=== PATIENT | male | born 1945 | race Caucasian/White ===

== ENCOUNTER 2019-10-14 19:40 | Inpatient (IN) | payer OTHER ==
[~2019-10-14] VITALS: Ht 175.2 cm; Wt 72.8 kg
[2019-10-14 19:41] VITALS: BP 122/67
[2019-10-14 21:06] LABS: HEMOGLOBIN 12.8 g/dl (14.0-18.0); MEAN CELL VOLUME 90.5 fl (80.0-94.0); MEAN CORPUSCULAR HGB 31.3 pg (27.0-31.0); MEAN CORPUSCULAR HGB CONC 34.6 g/dl (33.0-37.0); MEAN PLATELET VOLUME 10.8 fl (9.6-12.3); PLATELET COUNT AUTOMATED 141 10*3/uL (130-400); RED BLOOD COUNT 4.09 10*6/uL (4.50-5.90); RED CELL DISTRI WIDTH 13.2 % (0-14.5); WHITE BLOOD COUNT 27.4 10*3/uL (4.8-10.8)
[2019-10-14 21:21] LABS: ALKALINE PHOSPHATASE 108 U/L (45-117); BUN 12 mg/dl (7-24); CHLORIDE 103 mmol/L (98-107); CREATININE 1.12 mg/dL (0.70-1.30); LIPASE 25 U/L (73-393); POTASSIUM 3.5 mmol/L (3.5-5.1); SGOT/AST 13 IU/L (3-35); SGPT/ALT 18 U/L (12-78); SODIUM 134 mmol/L (136-145); TOTAL PROTEIN 6.5 gm/dL (6.4-8.2)
[2019-10-14 21:29] LABS: TOTAL CELLS COUNTED 100 #CELLS
[2019-10-14 21:30] LABS: PLATELET SUFFICIENCY NORMAL (NORMAL)
[2019-10-14 22:28] LABS: BILIRUBIN NEGATIVE (NEGATIVE); BLOOD 3+ (NEGATIVE); CLARITY CLOUDY (CLEAR); COLOR YELLOW (YELLOW); GLUCOSE NEGATIVE (NEGATIVE); KETONE TRACE (NEGATIVE); LEUKO ESTERASE 3+ (NEGATIVE); NITRITE POSITIVE (NEGATIVE); UROBILINOGEN 0.2 E.U./dl (0.2-1.0)
[2019-10-14 23:18] LABS: BACTERIA 4+; RBC 21-30 rbc/hpf (0-2); WBC 31-40 wbc/hpf (0-5)
[2019-10-15] MEDS ORDERED: AMLODIPINE BES2.5 MG PO (00:13)
[2019-10-15] MEDS ORDERED: PANTOPRAZOLE SO40 MG PO (00:14)
[2019-10-15] MEDS ORDERED: CARVEDILOL3.125 MG PO (00:14)
[2019-10-15] MEDS ORDERED: FINASTERIDE5 M1 PO (00:14)
[2019-10-15 00:15] VITALS: BP 125/55
[2019-10-15] MEDS ORDERED: MESALAMINE4 GM/60 ML R (00:15)
--- NOTE | 2019-10-15 00:15 | NUR ---
Time: 14 A 74 year old MALE admitted to 4E under services of YENIFER KLEIN DO. Pt. arrived via stretcher from ER. Chief complaint: ABD PAIN. JERRICA WETZEL
[2019-10-15] MEDS ORDERED: FISH OIL 1,0001 EAC4 PO (00:16)
[2019-10-15] MEDS ORDERED: SAW PALMETTO500 MG PO (00:16)
[2019-10-15] MEDS ORDERED: CALCIUM 600 +1 EAC5 PO (00:18)
--- NOTE | 2019-10-15 00:18 | NUR ---
MED REC UPDATED PER LIST PROVIDED BY PATIENT
[2019-10-15] MEDS ORDERED: METAMUCIL660 GM PO (00:20)
--- NOTE | 2019-10-15 00:20 | NUR ---
MED REC COMPLETED WITH LIST FROM HOME
[2019-10-15 06:26] LABS: HEMATOCRIT 37.5 % (42.0-52.0); MEAN CELL VOLUME 89.9 fl (80.0-94.0); MEAN CORPUSCULAR HGB 31.2 pg (27.0-31.0); MEAN CORPUSCULAR HGB CONC 34.7 g/dl (33.0-37.0); MEAN PLATELET VOLUME 11.4 fl (9.6-12.3); PLATELET COUNT AUTOMATED 143 10*3/uL (130-400); RED BLOOD COUNT 4.17 10*6/uL (4.50-5.90); RED CELL DISTRI WIDTH 13.5 % (0-14.5); WHITE BLOOD COUNT 27.8 10*3/uL (4.8-10.8)
[2019-10-15 06:41] LABS: ALBUMIN 2.9 gm/dl (3.1-4.5); BUN 13 mg/dl (7-24); CHLORIDE 103 mmol/L (98-107); HDL CHOLESTEROL 55 mg/dl (40-60); POTASSIUM 3.8 mmol/L (3.5-5.1); SGOT/AST 11 IU/L (3-35); SODIUM 135 mmol/L (136-145); TOTAL PROTEIN 6.6 gm/dL (6.4-8.2)
[2019-10-15 06:50] LABS: ALKALINE PHOSPHATASE 105 U/L (45-117); CHOLESTEROL 110 mg/dL (<200); LDL CHOLESTEROL 47 mg/dL (9-159); PHOSPHOROUS 2.7 mg/dL (2.5-4.9); SGPT/ALT 17 U/L (12-78); THYROID STIM HORMONE (HS) 0.951 uIU/ml (0.358-4.75); TRIGLYCERIDES 42 mg/dl (<150); VLDL CHOLESTEROL 8 mg/dL (6-40)
[2019-10-15 07:16] LABS: INTERNATIONAL NORM RATIO 1.1 (2.0-3.5)
[2019-10-15 07:22] LABS: ATYPICAL LYMPHS 1 % (0-0); PLATELET SUFFICIENCY NORMAL (NORMAL); TOTAL CELLS COUNTED 100 #CELLS
--- NOTE | 2019-10-15 07:54 | NUR ---
NOTIFIED THAT THE MED REC WAS UPDATED AND HOME MEDS NEED REVIEWED/RESTARTED. SAID OK.
[2019-10-15 08:00] VITALS: BP 108/54
--- NOTE | 2019-10-15 08:32 | NUR ---
PHYSICAL THERAPY Screen received pt just admitted limite information on chart, please consult Physical Therapy if pt has a decline in functional status from baseline thank you Georgette Garza PT
--- NOTE | 2019-10-15 08:45 | NUR ---
OFF FLOOR FOR ULTRASOUND.
--- NOTE | 2019-10-15 09:00 | NUR ---
Fence Installer Foreman in to talk to patient. Patient states lives at home with . There are few steps in the home. Physician: damion [facility]ve Pharmacy: [facility] Home health services: none Patient's level of ADLs: INDEPENDENT Patient has working utilities: all working DME: none Follow-up physician's appointment after d/c: will be made by hospitalist nurse director upon discharge Does patient want to access PORTAL?: no Discharge plan discussed with patient, present, patient stated he lives at home with , he is independent in adls and ambulation, he doesn't drive but his does, he states he will return home when medically stable and denies any home needs, agrees that he will return home and denies any home needs, case management will follow. RONDA GONZALES
--- NOTE | 2019-10-15 09:13 | NUR ---
BACK TO ROOM FOLLOWING ULTRASOUND
[2019-10-15 12:00] VITALS: BP 124/65
--- NOTE | 2019-10-15 15:26 | NUR ---
CALLED TO ROOM FOR ABD PAIN COMPLAINTS. DULCOLAX AND TYLENOL GIVEN. PT STATES LAST BM WAS APROX TUESDAY WHICH IS UNUSUAL FOR HIM. WILL MONITOR.
[2019-10-15 16:12] VITALS: BP 125/70
[2019-10-15 20:00] VITALS: BP 90/70
--- NOTE | 2019-10-15 20:30 | NUR ---
PT RESTING IN BED. RESP-EASY AND REGULAR. NO C/O AT THIS TIME. CALL LIGHT IN REACH.
[2019-10-16] VITALS: BP 112/63
--- NOTE | 2019-10-16 00:05 | NUR ---
RESTING IN BED; BED ALARM ON.
--- NOTE | 2019-10-16 06:00 | NUR ---
RESTING IN BED WITH EYES CLOSED. RESPIRATIONS UNLABORED. CALL LIGHT WITHIN REACH; BED IN LOW LOCKED POSITION.
[2019-10-16 08:00] VITALS: BP 116/57
[2019-10-16 08:09] LABS: BASO # 0.1 10*3/uL (0.0-0.1); BASO % 0.3 % (0.0-1.0); EOS % 0.2 % (1.0-4.0); HEMATOCRIT 38.2 % (42.0-52.0); HEMOGLOBIN 13.1 g/dl (14.0-18.0); LYMPH # 1.8 10*3/uL (1.3-4.4); LYMPH % 9.2 % (27.0-41.0); MEAN CORPUSCULAR HGB 31.2 pg (27.0-31.0); MEAN CORPUSCULAR HGB CONC 34.3 g/dl (33.0-37.0); MEAN PLATELET VOLUME 11.1 fl (9.6-12.3); MONO # 1.3 10*3/uL (0.1-1.0); MONO % 6.7 % (3.0-9.0); NEUT # 16.1 10*3/uL (2.3-7.9); NEUT % 82.8 % (47.0-73.0); PLATELET COUNT AUTOMATED 140 10*3/uL (130-400); RED CELL DISTRI WIDTH 13.6 % (0-14.5); WHITE BLOOD COUNT 19.4 10*3/uL (4.8-10.8)
--- NOTE | 2019-10-16 08:15 | NUR ---
PT RESTING IN BED. RESP-EASY AND REGULAR. NO C/O AT THIS TIME. CALL LIGHT IN REACH. SEE SHIFT ASSESSMENT.
--- NOTE | 2019-10-16 09:00 | NUR ---
case management visits with patient, present, patient stated he would be returning home when medically stable and denies any home needs, was in agreement, case management will follow
[2019-10-16 12:00] VITALS: BP 133/63
--- NOTE | 2019-10-16 12:00 | NUR ---
PT RESTING IN BED. RESP-EASY ANDREGULAR. CALL LIGHT IN REACH.
--- NOTE | 2019-10-16 14:00 | NUR ---
RESTING IN BED. NO C/O AT THIS TIME. CALL LIGHT IN REACH.
[2019-10-16 16:00] VITALS: BP 153/84
--- NOTE | 2019-10-16 16:15 | NUR ---
Patient resting quietly with no c/o discomfort. Respirations easy and regular. Vital signs stable. No overt distress. NORMAN HERRERA
[2019-10-16 20:00] VITALS: BP 123/65
[2019-10-17] VITALS: BP 110/81
--- NOTE | 2019-10-17 04:28 | NUR ---
PT ASLEEP IN BED. RESPIRATIONS EASY. NO S/S OF DISTRESS NOTED. WILL MONITOR. CALL LIGHT IN REACH.
[2019-10-17 06:29] LABS: BASO % 0.3 % (0.0-1.0); EOS # 0.1 10*3/uL (0.0-0.4); EOS % 0.9 % (1.0-4.0); HEMATOCRIT 38.1 % (42.0-52.0); HEMOGLOBIN 12.9 g/dl (14.0-18.0); LYMPH # 1.8 10*3/uL (1.3-4.4); LYMPH % 17.9 % (27.0-41.0); MEAN CELL VOLUME 90.5 fl (80.0-94.0); MEAN CORPUSCULAR HGB 30.6 pg (27.0-31.0); MEAN CORPUSCULAR HGB CONC 33.9 g/dl (33.0-37.0); MEAN PLATELET VOLUME 11.6 fl (9.6-12.3); MONO # 0.9 10*3/uL (0.1-1.0); MONO % 8.4 % (3.0-9.0); NEUT # 7.4 10*3/uL (2.3-7.9); NEUT % 72.2 % (47.0-73.0); PLATELET COUNT AUTOMATED 144 10*3/uL (130-400); RED BLOOD COUNT 4.21 10*6/uL (4.50-5.90); RED CELL DISTRI WIDTH 13.8 % (0-14.5); WHITE BLOOD COUNT 10.2 10*3/uL (4.8-10.8)
--- NOTE | 2019-10-17 06:42 | NUR ---
NOTIFIED OF POSITIVE ORTHOS, BUT PT ASYMPTOMATIC. NO NEW ORDERS RECEIVED.
[2019-10-17 08:00] VITALS: BP 137/73
[2019-10-17] MEDS ORDERED: VITAMIN D32000 UNI1 PO (08:35)
[2019-10-17] MEDS ORDERED: CEFUROXIME AXE500 MG PO (08:35)
--- NOTE | 2019-10-17 08:50 | NUR ---
PT SITTING UP IN BED. RESP-EASY AND REGULAR. NO C/O AT THIS TIME. CALL LIGHT IN REACH. SEE SHIFT ASSESSMENT.
--- NOTE | 2019-10-17 09:00 | NUR ---
case management visits with patient and , he states he will return home when medically stable and denies any home needs
--- NOTE | 2019-10-17 09:46 | NUR ---
Discharge instructions reviewed with patient/family. Patient receptive and verbalizes understanding. Follow-up care arranged. Written instructions given to patient/family. HEPLOCK REMOVED 2X2 APPLIED. GEO ESCOBAR
--- NOTE | 2019-10-17 10:15 | NUR ---
PT ESCORTED OFF THE FLOOR FOR DISCHARGE VIA WHEELCHAIR.
== END 2019-10-17 10:00 | disposition home or self-care (01) | DRG 689 ==
LOC: ED 19:40 → 4E 23:53 → EDHOLD 23:53 → 4E 10-15 00:11
PROVIDERS: Emergency Medicine; Student in an Organized Health Care Education/Training Program; ADMIT Emergency Medicine
DX: N30.00 Acute cystitis without hematuria (principal); G93.41 Metabolic encephalopathy; E87.1 Hypo-osmolality and hyponatremia; K51.919 Ulcerative colitis, unspecified with unspecified complications; E44.0 Moderate protein-calorie malnutrition; R73.9 Hyperglycemia, unspecified; E80.6 Other disorders of bilirubin metabolism; K21.9 Gastro-esophageal reflux disease without esophagitis; N40.0 Benign prostatic hyperplasia without lower urinary tract symptoms; I10 Essential (primary) hypertension; D64.9 Anemia, unspecified; R73.03 Prediabetes; E55.9 Vitamin D deficiency, unspecified; Z88.8 Allergy status to other drugs, medicaments and biological substances; Z68.23 Body mass index [BMI] 23.0-23.9, adult; Z95.0 Presence of cardiac pacemaker; Z79.899 Other long term (current) drug therapy

== ENCOUNTER 2020-04-05 04:26 | Observation (INO) | payer OTHER ==
[~2020-04-05] VITALS: Ht 175.2 cm; Wt 72.3 kg
[~2020-04-05 04:26] MED LIST: AMLODIPINE BES2.5 MG PO; CALCIUM 600 +1 EAC5 PO; CARVEDILOL3.125 MG PO; CEFUROXIME AXE500 MG PO; FINASTERIDE5 M1 PO; FISH OIL 1,0001 EAC4 PO; MESALAMINE4 GM/60 ML R; METAMUCIL660 GM PO; PANTOPRAZOLE SO40 MG PO; SAW PALMETTO500 MG PO; VITAMIN D32000 UNI1 PO
[2020-04-05 04:45] LABS: BASO # 0.1 10*3/uL (0.0-0.1); EOS # 0.2 10*3/uL (0.0-0.4); EOS % 3.2 % (1.0-4.0); HEMATOCRIT 40.4 % (42.0-52.0); LYMPH # 2.4 10*3/uL (1.3-4.4); LYMPH % 34.2 % (27.0-41.0); MEAN CORPUSCULAR HGB 29.6 pg (27.0-31.0); MEAN CORPUSCULAR HGB CONC 33.7 g/dl (33.0-37.0); MEAN PLATELET VOLUME 10.7 fl (9.6-12.3); MONO # 0.7 10*3/uL (0.1-1.0); MONO % 9.6 % (3.0-9.0); NEUT # 3.6 10*3/uL (2.3-7.9); NEUT % 51.9 % (47.0-73.0); PLATELET COUNT AUTOMATED 171 10*3/uL (130-400); RED BLOOD COUNT 4.59 10*6/uL (4.50-5.90); RED CELL DISTRI WIDTH 14.3 % (0-14.5)
[2020-04-05 04:58] LABS: ACT PARTIAL THROMBO TIME 25.9 SECONDS (20.0-32.1); INTERNATIONAL NORM RATIO 1.1 (2.0-3.5)
[2020-04-05 05:03] LABS: ALBUMIN 3.5 gm/dl (3.1-4.5); ALKALINE PHOSPHATASE 114 U/L (45-117); BUN 13 mg/dl (7-24); CHLORIDE 109 mmol/L (98-107); CREATININE 0.91 mg/dL (0.70-1.30); POTASSIUM 3.6 mmol/L (3.5-5.1); SGOT/AST 16 IU/L (3-35); SGPT/ALT 21 U/L (12-78); SODIUM 140 mmol/L (136-145); TOTAL PROTEIN 7.5 gm/dL (6.4-8.2)
[2020-04-05 05:07] LABS: TROPONIN I < 0.015 ng/ml (<0.045)
[2020-04-05 08:02] VITALS: BP 153/73
[2020-04-05 13:05] VITALS: BP 142/90
[2020-04-05 16:00] VITALS: BP 151/90
[2020-04-05 20:00] VITALS: BP 119/62
[2020-04-06] VITALS: BP 127/72
[2020-04-06 06:44] LABS: BUN 18 mg/dl (7-24); CHLORIDE 106 mmol/L (98-107); SODIUM 136 mmol/L (136-145)
[2020-04-06 08:00] VITALS: BP 125/87
== END 2020-04-06 10:20 | disposition home or self-care (01) ==
LOC: ED 04:26 → 4E 08:23 → EDHOLD 08:23 → 4E 12:22
PROVIDERS: Emergency Medicine; Student in an Organized Health Care Education/Training Program; ADMIT Family Medicine
DX: I49.9 Cardiac arrhythmia, unspecified (principal); E44.0 Moderate protein-calorie malnutrition; D64.9 Anemia, unspecified; E87.8 Other disorders of electrolyte and fluid balance, not elsewhere classified; R73.9 Hyperglycemia, unspecified; R73.03 Prediabetes; K21.9 Gastro-esophageal reflux disease without esophagitis; I25.10 Atherosclerotic heart disease of native coronary artery without angina pectoris; N40.0 Benign prostatic hyperplasia without lower urinary tract symptoms; E80.6 Other disorders of bilirubin metabolism; M19.90 Unspecified osteoarthritis, unspecified site; E83.41 Hypermagnesemia; Z95.810 Presence of automatic (implantable) cardiac defibrillator; I10 Essential (primary) hypertension; Z86.79 Personal history of other diseases of the circulatory system; Z88.8 Allergy status to other drugs, medicaments and biological substances; Z82.49 Family history of ischemic heart disease and other diseases of the circulatory system; Z84.89 Family history of other specified conditions; Z79.899 Other long term (current) drug therapy; Z68.23 Body mass index [BMI] 23.0-23.9, adult

== ENCOUNTER 2020-12-07 19:33 | Inpatient (IN) | payer OTHER ==
[~2020-12-07] VITALS: Ht 177.8 cm; Wt 73.1 kg
[2020-12-07 19:34] VITALS: BP 135/89
[2020-12-07 20:09] LABS: BASO # 0.1 10*3/uL (0.0-0.1); BASO % 0.8 % (0.0-1.0); EOS # 0.2 10*3/uL (0.0-0.4); EOS % 3.2 % (1.0-4.0); HEMATOCRIT 39.1 % (42.0-52.0); LYMPH # 2.4 10*3/uL (1.3-4.4); LYMPH % 36.4 % (27.0-41.0); MEAN CELL VOLUME 88.5 fl (80.0-94.0); MEAN CORPUSCULAR HGB 29.4 pg (27.0-31.0); MEAN CORPUSCULAR HGB CONC 33.2 g/dl (33.0-37.0); MEAN PLATELET VOLUME 10.1 fl (9.6-12.3); MONO # 0.7 10*3/uL (0.1-1.0); MONO % 11.4 % (3.0-9.0); NEUT # 3.1 10*3/uL (2.3-7.9); NEUT % 48.2 % (47.0-73.0); PLATELET COUNT AUTOMATED 190 10*3/uL (130-400); RED BLOOD COUNT 4.42 10*6/uL (4.50-5.90); RED CELL DISTRI WIDTH 13.7 % (0-14.5); WHITE BLOOD COUNT 6.5 10*3/uL (4.8-10.8)
[2020-12-07 20:28] LABS: ALBUMIN 3.3 gm/dl (3.1-4.5); ALKALINE PHOSPHATASE 133 U/L (45-117); BUN 10 mg/dl (7-24); CHLORIDE 108 mmol/L (98-107); CREATININE 0.87 mg/dL (0.70-1.30); POTASSIUM 4.1 mmol/L (3.5-5.1); SGOT/AST 15 IU/L (3-35); SGPT/ALT 21 U/L (12-78); SODIUM 140 mmol/L (136-145); TOTAL PROTEIN 7.4 gm/dL (6.4-8.2)
[2020-12-07 20:33] LABS: TROPONIN I < 0.015 ng/ml (<0.045)
[2020-12-07] MEDS ORDERED: VITAMIN D325 MC1 PO (21:55)
[2020-12-07] MEDS ORDERED: THERAGRAN-M PR1 EACH PO (21:56)
[2020-12-07] MEDS ORDERED: VITAMIN E100 UNIT PO (21:57)
[2020-12-07] MEDS ORDERED: B COMPLEX1 EACH PO (21:57)
[2020-12-07 21:59] VITALS: BP 127/90
[2020-12-07 22:15] VITALS: BP 145/100
[2020-12-08] VITALS: BP 136/76
[2020-12-08 04:00] VITALS: BP 137/90
[2020-12-08 06:15] LABS: BASO # 0.1 10*3/uL (0.0-0.1); BASO % 0.7 % (0.0-1.0); EOS # 0.2 10*3/uL (0.0-0.4); EOS % 1.9 % (1.0-4.0); HEMATOCRIT 39.4 % (42.0-52.0); LYMPH # 1.8 10*3/uL (1.3-4.4); LYMPH % 20.2 % (27.0-41.0); MEAN CORPUSCULAR HGB 29.1 pg (27.0-31.0); MEAN CORPUSCULAR HGB CONC 33.5 g/dl (33.0-37.0); MEAN PLATELET VOLUME 10.8 fl (9.6-12.3); MONO # 0.7 10*3/uL (0.1-1.0); MONO % 8.1 % (3.0-9.0); NEUT # 6.1 10*3/uL (2.3-7.9); NEUT % 68.8 % (47.0-73.0); PLATELET COUNT AUTOMATED 188 10*3/uL (130-400); RED BLOOD COUNT 4.53 10*6/uL (4.50-5.90); RED CELL DISTRI WIDTH 13.9 % (0-14.5); WHITE BLOOD COUNT 8.8 10*3/uL (4.8-10.8)
[2020-12-08 06:28] LABS: ALBUMIN 3.3 gm/dl (3.1-4.5); BUN 11 mg/dl (7-24); CHLORIDE 108 mmol/L (98-107); POTASSIUM 3.5 mmol/L (3.5-5.1); SODIUM 139 mmol/L (136-145)
[2020-12-08 06:37] LABS: ALKALINE PHOSPHATASE 123 U/L (45-117); CREATININE 0.74 mg/dL (0.70-1.30); FREE T4 1.33 ng/dl (0.76-1.46); SGOT/AST 19 IU/L (3-35); SGPT/ALT 21 U/L (12-78); TOTAL PROTEIN 7.3 gm/dL (6.4-8.2)
[2020-12-08 08:00] VITALS: BP 136/88
[2020-12-08 12:00] VITALS: BP 126/87
[2020-12-08 16:00] VITALS: BP 146/56; BP 93/51
[2020-12-08 20:00] VITALS: BP 112/78
[2020-12-09] VITALS: BP 135/87
[2020-12-09 04:00] VITALS: BP 116/72
[2020-12-09 06:11] LABS: ALBUMIN 3.2 gm/dl (3.1-4.5); ALKALINE PHOSPHATASE 133 U/L (45-117); BUN 16 mg/dl (7-24); CHLORIDE 105 mmol/L (98-107); CREATININE 0.89 mg/dL (0.70-1.30); POTASSIUM 3.9 mmol/L (3.5-5.1); SGOT/AST 16 IU/L (3-35); SGPT/ALT 21 U/L (12-78); SODIUM 138 mmol/L (136-145); TOTAL PROTEIN 7.4 gm/dL (6.4-8.2)
[2020-12-09 06:24] LABS: BASO # 0.1 10*3/uL (0.0-0.1); BASO % 0.7 % (0.0-1.0); EOS # 0.2 10*3/uL (0.0-0.4); EOS % 1.8 % (1.0-4.0); HEMATOCRIT 40.9 % (42.0-52.0); LYMPH # 2.6 10*3/uL (1.3-4.4); LYMPH % 28.7 % (27.0-41.0); MEAN CELL VOLUME 87.6 fl (80.0-94.0); MEAN CORPUSCULAR HGB 29.1 pg (27.0-31.0); MEAN CORPUSCULAR HGB CONC 33.3 g/dl (33.0-37.0); MEAN PLATELET VOLUME 11.1 fl (9.6-12.3); MONO # 1.1 10*3/uL (0.1-1.0); MONO % 11.9 % (3.0-9.0); NEUT # 5.1 10*3/uL (2.3-7.9); NEUT % 56.7 % (47.0-73.0); PLATELET COUNT AUTOMATED 193 10*3/uL (130-400); RED BLOOD COUNT 4.67 10*6/uL (4.50-5.90)
[2020-12-09 08:00] VITALS: BP 110/55
[2020-12-09 12:00] VITALS: BP 123/78
[2020-12-09 16:00] VITALS: BP 151/94
[2020-12-09 20:00] VITALS: BP 114/84
[2020-12-10] VITALS: BP 124/88
[2020-12-10 04:00] VITALS: BP 123/78
[2020-12-10 05:35] LABS: ALBUMIN 2.8 gm/dl (3.1-4.5); ALKALINE PHOSPHATASE 119 U/L (45-117); BUN 16 mg/dl (7-24); CHLORIDE 107 mmol/L (98-107); CREATININE 0.88 mg/dL (0.70-1.30); POTASSIUM 3.8 mmol/L (3.5-5.1); SGOT/AST 17 IU/L (3-35); SGPT/ALT 22 U/L (12-78); SODIUM 137 mmol/L (136-145); TOTAL PROTEIN 6.5 gm/dL (6.4-8.2)
[2020-12-10 08:00] VITALS: BP 122/78
[2020-12-10 11:48] VITALS: BP 124/82
[2020-12-10 16:00] VITALS: BP 128/69
[2020-12-10 20:00] VITALS: BP 129/92
[2020-12-11] VITALS: BP 131/94
[2020-12-11 07:33] LABS: ALBUMIN 3.2 gm/dl (3.1-4.5); ALKALINE PHOSPHATASE 132 U/L (45-117); BUN 18 mg/dl (7-24); CHLORIDE 107 mmol/L (98-107); CREATININE 0.91 mg/dL (0.70-1.30); POTASSIUM 3.8 mmol/L (3.5-5.1); SGOT/AST 17 IU/L (3-35); SGPT/ALT 26 U/L (12-78); SODIUM 138 mmol/L (136-145); TOTAL PROTEIN 7.4 gm/dL (6.4-8.2)
[2020-12-11 08:00] VITALS: BP 143/92
[2020-12-11 12:00] VITALS: BP 145/89
[2020-12-11 16:00] VITALS: BP 142/78
[2020-12-11 20:00] VITALS: BP 130/80
[2020-12-12] VITALS: BP 151/97
[2020-12-12 06:10] LABS: BASO # 0.1 10*3/uL (0.0-0.1); BASO % 0.7 % (0.0-1.0); EOS # 0.2 10*3/uL (0.0-0.4); EOS % 2.8 % (1.0-4.0); HEMATOCRIT 36.5 % (42.0-52.0); LYMPH # 1.8 10*3/uL (1.3-4.4); LYMPH % 26.9 % (27.0-41.0); MEAN CELL VOLUME 87.1 fl (80.0-94.0); MEAN CORPUSCULAR HGB 28.9 pg (27.0-31.0); MEAN CORPUSCULAR HGB CONC 33.2 g/dl (33.0-37.0); MEAN PLATELET VOLUME 10.8 fl (9.6-12.3); MONO # 0.6 10*3/uL (0.1-1.0); MONO % 9.2 % (3.0-9.0); NEUT # 4.1 10*3/uL (2.3-7.9); NEUT % 60.3 % (47.0-73.0); PLATELET COUNT AUTOMATED 194 10*3/uL (130-400); RED BLOOD COUNT 4.19 10*6/uL (4.50-5.90); RED CELL DISTRI WIDTH 14.1 % (0-14.5); WHITE BLOOD COUNT 6.8 10*3/uL (4.8-10.8)
[2020-12-12 06:11] LABS: ALBUMIN 2.8 gm/dl (3.1-4.5); ALKALINE PHOSPHATASE 118 U/L (45-117); BUN 17 mg/dl (7-24); CHLORIDE 110 mmol/L (98-107); CREATININE 0.81 mg/dL (0.70-1.30); SGOT/AST 15 IU/L (3-35); SGPT/ALT 21 U/L (12-78); SODIUM 140 mmol/L (136-145); TOTAL PROTEIN 6.4 gm/dL (6.4-8.2)
[2020-12-12 08:00] VITALS: BP 142/98; BP 150/102
[2020-12-12 12:00] VITALS: BP 145/91
[2020-12-12 16:00] VITALS: BP 159/96
[2020-12-12 20:00] VITALS: BP 142/96
[2020-12-13] VITALS: BP 145/88
[2020-12-13 05:31] LABS: ALBUMIN 2.9 gm/dl (3.1-4.5); BUN 15 mg/dl (7-24); CHLORIDE 111 mmol/L (98-107); CREATININE 0.85 mg/dL (0.70-1.30); POTASSIUM 3.7 mmol/L (3.5-5.1); SGOT/AST 14 IU/L (3-35); SGPT/ALT 20 U/L (12-78); SODIUM 140 mmol/L (136-145); TOTAL PROTEIN 6.6 gm/dL (6.4-8.2)
[2020-12-13 05:32] LABS: ALKALINE PHOSPHATASE 115 U/L (45-117)
[2020-12-13 05:54] LABS: BASO # 0.1 10*3/uL (0.0-0.1); BASO % 0.7 % (0.0-1.0); EOS # 0.2 10*3/uL (0.0-0.4); EOS % 2.5 % (1.0-4.0); HEMATOCRIT 36.3 % (42.0-52.0); LYMPH # 2.3 10*3/uL (1.3-4.4); LYMPH % 26.2 % (27.0-41.0); MEAN CELL VOLUME 88.1 fl (80.0-94.0); MEAN CORPUSCULAR HGB 28.9 pg (27.0-31.0); MEAN CORPUSCULAR HGB CONC 32.8 g/dl (33.0-37.0); MEAN PLATELET VOLUME 10.5 fl (9.6-12.3); MONO # 0.8 10*3/uL (0.1-1.0); MONO % 8.9 % (3.0-9.0); NEUT # 5.3 10*3/uL (2.3-7.9); NEUT % 61.5 % (47.0-73.0); PLATELET COUNT AUTOMATED 193 10*3/uL (130-400); RED BLOOD COUNT 4.12 10*6/uL (4.50-5.90); WHITE BLOOD COUNT 8.6 10*3/uL (4.8-10.8)
[2020-12-13 08:00] VITALS: BP 146/88
[2020-12-13] MEDS ORDERED: CARVEDILOL6.25 MG PO (09:54)
[2020-12-13] MEDS ORDERED: PACERONE200 MG PO (09:54)
[2020-12-13] MEDS ORDERED: MEXILETINE HCL150 MG PO (09:54)
== END 2020-12-13 12:55 | disposition home or self-care (01) | DRG 309 ==
LOC: ED 19:33 → 4E 21:31 → EDHOLD 21:31 → ICCU 21:31 → 4E 21:47 → ICCU 21:59 → 4E 12-10 12:43
PROVIDERS: Emergency Medicine; Family Medicine; Internal Medicine; ADMIT Emergency Medicine; ATTEND Emergency Medicine
DX: I47.2 Ventricular tachycardia (principal); E44.0 Moderate protein-calorie malnutrition; I42.9 Cardiomyopathy, unspecified; K51.90 Ulcerative colitis, unspecified, without complications; R65.10 Systemic inflammatory response syndrome (SIRS) of non-infectious origin without acute organ dysfunction; D64.9 Anemia, unspecified; M19.90 Unspecified osteoarthritis, unspecified site; N40.0 Benign prostatic hyperplasia without lower urinary tract symptoms; K21.9 Gastro-esophageal reflux disease without esophagitis; E87.8 Other disorders of electrolyte and fluid balance, not elsewhere classified; E55.9 Vitamin D deficiency, unspecified; E11.65 Type 2 diabetes mellitus with hyperglycemia; I10 Essential (primary) hypertension; Z88.8 Allergy status to other drugs, medicaments and biological substances; Z95.0 Presence of cardiac pacemaker; Z82.49 Family history of ischemic heart disease and other diseases of the circulatory system; Z84.89 Family history of other specified conditions; Z68.23 Body mass index [BMI] 23.0-23.9, adult

== ENCOUNTER 2021-01-17 03:44 | Emergency (ER) | payer OTHER ==
[~2021-01-17] VITALS: Ht 177.8 cm; Wt 76.7 kg
[~2021-01-17 03:44] MED LIST changes: +B COMPLEX1 EACH PO; +CARVEDILOL6.25 MG PO; +MEXILETINE HCL150 MG PO; +PACERONE200 MG PO; +THERAGRAN-M PR1 EACH PO; +VITAMIN D325 MC1 PO; +VITAMIN E100 UNIT PO
[2021-01-17 04:07] LABS: BASO # 0.1 10*3/uL (0.0-0.1); BASO % 0.8 % (0.0-1.0); EOS # 0.2 10*3/uL (0.0-0.4); EOS % 2.5 % (1.0-4.0); LYMPH % 33.4 % (27.0-41.0); MEAN CELL VOLUME 86.5 fl (80.0-94.0); MEAN CORPUSCULAR HGB 29.3 pg (27.0-31.0); MEAN CORPUSCULAR HGB CONC 33.9 g/dl (33.0-37.0); MEAN PLATELET VOLUME 10.6 fl (9.6-12.3); MONO # 0.7 10*3/uL (0.1-1.0); MONO % 12.1 % (3.0-9.0); NEUT # 3.1 10*3/uL (2.3-7.9); PLATELET COUNT AUTOMATED 203 10*3/uL (130-400); RED BLOOD COUNT 4.74 10*6/uL (4.50-5.90); RED CELL DISTRI WIDTH 14.2 % (0-14.5); WHITE BLOOD COUNT 6.1 10*3/uL (4.8-10.8)
[2021-01-17 04:23] LABS: ALBUMIN 3.4 gm/dl (3.1-4.5); ALKALINE PHOSPHATASE 146 U/L (45-117); BUN 12 mg/dl (7-24); CHLORIDE 104 mmol/L (98-107); CREATININE 1.01 mg/dL (0.70-1.30); POTASSIUM 3.5 mmol/L (3.5-5.1); SGOT/AST 17 IU/L (3-35); SGPT/ALT 27 U/L (12-78); SODIUM 136 mmol/L (136-145); TOTAL PROTEIN 7.6 gm/dL (6.4-8.2)
[2021-01-17 04:26] LABS: TROPONIN I < 0.015 ng/ml (<0.045)
== END 2021-01-17 04:57 | disposition home or self-care (01) ==
LOC: ED 03:44
PROVIDERS: Internal Medicine
DX: R06.00 Dyspnea, unspecified (principal); Z88.8 Allergy status to other drugs, medicaments and biological substances; Z91.030 Bee allergy status; Z79.899 Other long term (current) drug therapy; Z95.810 Presence of automatic (implantable) cardiac defibrillator; Z98.890 Other specified postprocedural states

== ENCOUNTER 2023-07-02 14:21 | Inpatient (IN) | payer OTHER ==
[~2023-07-02] VITALS: Ht 180 cm; Wt 77.1 kg
[2023-07-02 08:05] VITALS: BP 84/60
[~2023-07-02 14:21] MED LIST changes: +MEXILETINE150 MG PO
[2023-07-02 14:27] VITALS: BP 112/75
[2023-07-02 14:57] LABS: BASO % 0.5 % (0.0-1.0); EOS % 0.7 % (1.0-4.0); HEMATOCRIT 35.8 % (42.0-52.0); MEAN CELL VOLUME 95.5 fl (80.0-94.0); MEAN CORPUSCULAR HGB 33.6 pg (27.0-31.0); MEAN CORPUSCULAR HGB CONC 35.2 g/dl (33.0-37.0); MEAN PLATELET VOLUME 10.4 fl (9.6-12.3); MONO # 0.7 10*3/uL (0.1-1.0); MONO % 11.6 % (3.0-9.0); NEUT # 4.3 10*3/uL (2.3-7.9); NEUT % 69.9 % (47.0-73.0); PLATELET COUNT AUTOMATED 145 10*3/uL (130-400); RED BLOOD COUNT 3.75 10*6/uL (4.50-5.90); RED CELL DISTRI WIDTH 13.1 % (0-14.5); WHITE BLOOD COUNT 6.1 10*3/uL (4.8-10.8)
[2023-07-02 15:22] LABS: ALKALINE PHOSPHATASE 112 U/L (46-116); BUN 8 mg/dl (9-23); CHLORIDE 92 mmol/L (98-107); LIPASE 21 U/L (12-53); POTASSIUM 4.8 mmol/L (3.4-5.1); SGPT/ALT 27 U/L (10-49); TOTAL PROTEIN 6.3 gm/dL (6.0-8.0)
[2023-07-02 15:26] LABS: ACT PARTIAL THROMBO TIME 27.4 SECONDS (20.0-32.1); INTERNATIONAL NORM RATIO 1.1 (2.0-3.5)
[2023-07-02 16:26] LABS: BILIRUBIN Negative (Negative); BLOOD Negative (Negative); CLARITY Clear (Clear); COLOR Yellow (Yellow); GLUCOSE 3+ (Negative); KETONE Negative (Negative); LEUKO ESTERASE Negative (Negative); NITRITE Negative (Negative)
[2023-07-02 16:48] LABS: BACTERIA 2+; RBC 0-2 rbc/hpf (0-2)
[2023-07-02 16:49] LABS: EPITHELIAL CELLS 0-2
[2023-07-02] MEDS ORDERED: JARDIANCE10 MG PO (18:43)
[2023-07-02] MEDS ORDERED: FLOMAX0.4 MG PO (18:44)
[2023-07-02] MEDS ORDERED: TAMSULOSIN HCL0.4 MG PO (18:44)
[2023-07-02] MEDS ORDERED: ENTRESTO 49 MG1 EACH PO (18:46)
[2023-07-02 19:47] VITALS: BP 112/75
[2023-07-02 19:56] LABS: BUN 9 mg/dl (9-23); CHLORIDE 98 mmol/L (98-107); POTASSIUM 4.9 mmol/L (3.4-5.1)
[2023-07-02 23:23] VITALS: BP 107/63
[2023-07-03 00:10] VITALS: BP 134/80
[2023-07-03] MEDS ORDERED: ALDACTONE25 MG PO (00:38)
[2023-07-03] MEDS ORDERED: MEXILETINE HCL200 MG PO (00:40)
[2023-07-03] MEDS ORDERED: CARVEDILOL25 MG PO (00:41)
[2023-07-03 07:18] LABS: HEMATOCRIT 34.1 % (42.0-52.0); MEAN CELL VOLUME 93.9 fl (80.0-94.0); MEAN CORPUSCULAR HGB 33.9 pg (27.0-31.0); MEAN CORPUSCULAR HGB CONC 36.1 g/dl (33.0-37.0); MEAN PLATELET VOLUME 10.2 fl (9.6-12.3); PLATELET COUNT AUTOMATED 158 10*3/uL (130-400); RED BLOOD COUNT 3.63 10*6/uL (4.50-5.90); RED CELL DISTRI WIDTH 13.3 % (0-14.5); WHITE BLOOD COUNT 7.5 10*3/uL (4.8-10.8)
[2023-07-03 07:45] LABS: MANUAL DIFF REFLEX YES
[2023-07-03 08:00] VITALS: BP 113/75
[2023-07-03 08:52] LABS: ALKALINE PHOSPHATASE 99 U/L (46-116); BUN 7 mg/dl (9-23); CHLORIDE 100 mmol/L (98-107); CHOLESTEROL 128 mg/dL (<200); FREE T4 1.36 ng/dl (0.89-1.76); LDL CHOLESTEROL 60 mg/dL (9-159); POTASSIUM 4.6 mmol/L (3.4-5.1); SGPT/ALT 25 U/L (10-49); TOTAL PROTEIN 5.9 gm/dL (6.0-8.0); TRIGLYCERIDES 44 mg/dl (<150)
[2023-07-03 09:00] LABS: TOTAL CELLS COUNTED 100 #CELLS
[2023-07-03 09:01] LABS: PLATELET SUFFICIENCY NORMAL (NORMAL)
[2023-07-03 09:40] LABS: VITAMIN D, 25-HYDROXY 30.5 ng/mL (30-100)
[2023-07-03 12:00] VITALS: BP 103/74
[2023-07-03 12:07] LABS: BUN 8 mg/dl (9-23); CHLORIDE 103 mmol/L (98-107); POTASSIUM 4.7 mmol/L (3.4-5.1)
[2023-07-03 14:33] LABS: BUN 10 mg/dl (9-23); CHLORIDE 101 mmol/L (98-107); POTASSIUM 4.8 mmol/L (3.4-5.1)
[2023-07-03 16:00] VITALS: BP 102/70
[2023-07-03] MEDS ORDERED: AMIODARONE HYD200 MG PO (18:45)
[2023-07-03 20:00] VITALS: BP 109/71
[2023-07-04] VITALS: BP 106/69
[2023-07-04 06:40] LABS: BUN 13 mg/dl (9-23); CHLORIDE 98 mmol/L (98-107); POTASSIUM 4.5 mmol/L (3.4-5.1)
[2023-07-04 06:43] LABS: BASO # 0.1 10*3/uL (0.0-0.1); BASO % 0.5 % (0.0-1.0); EOS # 0.1 10*3/uL (0.0-0.4); EOS % 1.1 % (1.0-4.0); HEMATOCRIT 34.2 % (42.0-52.0); LYMPH # 1.5 10*3/uL (1.3-4.4); LYMPH % 15.7 % (27.0-41.0); MEAN CELL VOLUME 94.7 fl (80.0-94.0); MEAN CORPUSCULAR HGB 33.8 pg (27.0-31.0); MEAN CORPUSCULAR HGB CONC 35.7 g/dl (33.0-37.0); MONO # 1.2 10*3/uL (0.1-1.0); MONO % 12.4 % (3.0-9.0); NEUT # 6.6 10*3/uL (2.3-7.9); NEUT % 69.9 % (47.0-73.0); PLATELET COUNT AUTOMATED 144 10*3/uL (130-400); RED BLOOD COUNT 3.61 10*6/uL (4.50-5.90); RED CELL DISTRI WIDTH 13.6 % (0-14.5); WHITE BLOOD COUNT 9.4 10*3/uL (4.8-10.8)
[2023-07-04 08:00] VITALS: BP 105/77
[2023-07-04 12:00] VITALS: BP 107/65
[2023-07-04 12:41] LABS: BUN 12 mg/dl (9-23); CHLORIDE 100 mmol/L (98-107); POTASSIUM 4.6 mmol/L (3.4-5.1)
[2023-07-04 13:00] VITALS: BP 107/65
[2023-07-04 16:00] VITALS: BP 102/63
[2023-07-04 16:22] LABS: BUN 12 mg/dl (9-23); CHLORIDE 98 mmol/L (98-107); POTASSIUM 4.5 mmol/L (3.4-5.1)
[2023-07-04 20:00] VITALS: BP 104/66
[2023-07-05] VITALS: BP 104/64
[2023-07-05 07:59] LABS: BUN 11 mg/dl (9-23); CHLORIDE 97 mmol/L (98-107); POTASSIUM 4.5 mmol/L (3.4-5.1)
[2023-07-05 08:00] VITALS: BP 84/64
[2023-07-05 12:00] VITALS: BP 95/68
[2023-07-05 16:00] VITALS: BP 118/74
[2023-07-05 20:00] VITALS: BP 118/81
[2023-07-06] VITALS: BP 127/80
[2023-07-06 07:12] LABS: BASO # 0.1 10*3/uL (0.0-0.1); BASO % 0.8 % (0.0-1.0); EOS # 0.1 10*3/uL (0.0-0.4); EOS % 1.9 % (1.0-4.0); LYMPH # 1.4 10*3/uL (1.3-4.4); LYMPH % 18.8 % (27.0-41.0); MEAN CELL VOLUME 95.1 fl (80.0-94.0); MEAN CORPUSCULAR HGB 33.7 pg (27.0-31.0); MEAN CORPUSCULAR HGB CONC 35.4 g/dl (33.0-37.0); MEAN PLATELET VOLUME 10.3 fl (9.6-12.3); MONO # 0.9 10*3/uL (0.1-1.0); MONO % 12.1 % (3.0-9.0); NEUT # 4.9 10*3/uL (2.3-7.9); NEUT % 66.1 % (47.0-73.0); PLATELET COUNT AUTOMATED 143 10*3/uL (130-400); RED BLOOD COUNT 3.68 10*6/uL (4.50-5.90); RED CELL DISTRI WIDTH 13.6 % (0-14.5); WHITE BLOOD COUNT 7.5 10*3/uL (4.8-10.8)
[2023-07-06 07:54] LABS: BUN 12 mg/dl (9-23); CHLORIDE 98 mmol/L (98-107); POTASSIUM 4.8 mmol/L (3.4-5.1)
[2023-07-06 08:00] VITALS: BP 95/68
[2023-07-06] MEDS ORDERED: CARVEDILOL6.25 MG PO (12:45)
== END 2023-07-06 13:53 | disposition home health service (06) | DRG 73 ==
LOC: ED 14:21 → EDHOLD 18:33 → 5E 18:33
PROVIDERS: Internal Medicine; Student in an Organized Health Care Education/Training Program; ADMIT Internal Medicine; ATTEND Internal Medicine
DX: G90.8 Other disorders of autonomic nervous system (principal); G93.41 Metabolic encephalopathy; I50.22 Chronic systolic (congestive) heart failure; E87.1 Hypo-osmolality and hyponatremia; E86.0 Dehydration; E11.65 Type 2 diabetes mellitus with hyperglycemia; K21.9 Gastro-esophageal reflux disease without esophagitis; D53.9 Nutritional anemia, unspecified; E55.9 Vitamin D deficiency, unspecified; E88.09 Other disorders of plasma-protein metabolism, not elsewhere classified; N40.0 Benign prostatic hyperplasia without lower urinary tract symptoms; I11.0 Hypertensive heart disease with heart failure; E87.8 Other disorders of electrolyte and fluid balance, not elsewhere classified; I95.1 Orthostatic hypotension; Z88.8 Allergy status to other drugs, medicaments and biological substances; Z95.810 Presence of automatic (implantable) cardiac defibrillator; Z82.49 Family history of ischemic heart disease and other diseases of the circulatory system